=== PATIENT | female | born 1980 | race Caucasian/White ===

== ENCOUNTER 2018-11-14 02:14 | Inpatient (IN) | payer MEDICAID ==
[~2018-11-14] VITALS: Ht 160 cm; Wt 71.7 kg
[2018-11-14 02:31] VITALS: Ht 160 cm; Wt 71.7 kg
[2018-11-14 02:32] VITALS: BP 112/73; PULSE 85; RESP 17
[2018-11-14] MEDS ORDERED: CARBOPROST 250 MCG INJ IM PRN ×2 (03:00→06:00)
[2018-11-14] MEDS ORDERED: LIDOCAINE 1% (MPF) 30 ML INJ INJ PRN (03:00)
[2018-11-14] MEDS ORDERED: OXYTOCIN 30 UNITS/LR 500 ML IV SCH ×3 (03:00→05:47)
[2018-11-14] MEDS ORDERED: OXYTOCIN 30 UNITS/LR 500 ML IV PRN ×2 (03:00→06:00)
[2018-11-14] MEDS ORDERED: BUTORPHANOL 2 MG INJ IV PRN (03:00)
[2018-11-14] MEDS ORDERED: METHYLERGONOVINE 0.2 MG INJ IM PRN ×2 (03:00→06:00)
[2018-11-14] MEDS ORDERED: MISOPROSTOL 200 MCG TAB PR PRN ×2 (03:00→06:00)
[2018-11-14] MEDS: LACTATED RINGER'S 1,000 ML IV SCH ×2 (03:01→21:08)
--- NOTE | 2018-11-14 05:44 | HP ---
Date/Time of Note Date/Time of Note DATE: 11/14/18 TIME: 05:42 OB - History Hx of Present Free Text/Dictation Patient is a 37-year-old 4 para 1 at 39 weeks of gestation with estimated date of delivery 11/21/2018 Patient presents in active labor with regular contractions She reports positive movement; Denies any vaginal bleeding or leaking fluid GBS status is negative Estimated Due Date: Nov 21, 2018 : 4 Para: 1 Care: Good Care Past Family/Social History * Past Medical, Surgical, Family and Obstetric Histories reviewed from chart. OB Admission Exam Vital Signs Vital Signs Vital Signs Date Temp Pulse Resp B/P (MAP) Pulse Ox O2 O2 Flow FiO2 Time Delivery Rate 11/14/18 98.0 85 17 112/73 Room Air 02:32 (86) Physical Exam HEENT: WNL Heart: Rhythm Normal Lungs: Clear, Equal Abdomen: WNL Extremities: Normal Reflexes: Normal Cervical Dilatation: 5cm Effacement: 75% Station: -2 Membranes: Intact Heart Rate: 140's Accelerations: Accelerations Present Decelerations: No Decelerations Varibility: Marked Contractions on Admission: < 5 Minutes Apart Intensity: Moderate Last 72 hours Lab Results CBC & BMP 11/14/18 02:52 OB Assessment/Plan Reason for admission: active labor Plan: Expectant Management Other plan: Admit to labor and delivery Pain meds as needed Copies To: CC: MATT MCDANIEL MD ; HELENE FRANKEL MD Nov 14, 2018 05:44
--- NOTE | 2018-11-14 05:47 | LDN ---
Date/Time of Note Date/Time of Note DATE: 11/14/18 TIME: 05:45 Delivery Summary Weeks of Gestation Term gestation Placenta Delivered: Spontaneously Meconium: none Episiotomy: No Laceration repair: First-degree laceration repaired with 2-0 Vicryl Anesthesia type: Local Estimated blood loss: 200 Sponge & Needle done & correct: Yes All needle counts correct: Yes Any foreign bodies felt in the: No Delivery Information Sex Sex: male Apgars 1 Minute: 9 5 Minute: 9 Suctioning Nose & mouth suctioned at pratik: Yes Delee suction performed: No Umbilical Cord Umbilical cord with: 3 Vessels Cord presentations: no nuchal cord Cord Blood was obtained: Yes Mother & Baby Disposition Disposition Baby's weight 3130 g /6 pounds 14 ounces Mom & Baby to Maternity; Good: Yes Baby to NICU: No Copies To: CC: MATT MCDANIEL MD ; HELENE FRANKEL MD Nov 14, 2018 05:47
[2018-11-14] MEDS ORDERED: DIBUCAINE 1% 30 GM OINT TOP PRN (06:00)
[2018-11-14] MEDS ORDERED: BENZOCAINE 20% 56 ML SPRAY TOP PRN (06:00)
[2018-11-14] MEDS ORDERED: MAGNESIUM HYDROXIDE 30ML CUP PO PRN (06:00)
[2018-11-14] MEDS ORDERED: ACETAMINOPHEN 325 MG TAB PO PRN ×2 (06:00)
[2018-11-14] MEDS ORDERED: IBUPROFEN 600 MG TAB PO PRN (06:00)
[2018-11-14] MEDS ORDERED: WITCH HAZEL/GLYCERIN PAD PR PRN (06:00)
[2018-11-14] MEDS ORDERED: ONDANSETRON 4 MG INJ IV PRN (06:00)
[2018-11-14] MEDS ORDERED: LANOLIN HPA 1 PKT TOP PRN (06:00)
[2018-11-14 09:15] VITALS: BP 113/60; PULSE 85; RESP 19
[2018-11-14 15:59] VITALS: BP 115/62; PULSE 81; RESP 18
[2018-11-14 20:30] VITALS: BP 115/69; PULSE 89; RESP 18
[2018-11-14] MEDS: SENNA/DOCUSATE NA (8.6MG/50MG) TAB PO PRN (21:00)
[2018-11-14] MEDS: LACTATED RINGER'S 1,000 ML IV* SCH ×2 (21:08→21:47)
[2018-11-14] MEDS: IBUPROFEN 600 MG TAB PO PRN (23:44)
[2018-11-15] MEDS: LACTATED RINGER'S 1,000 ML IV SCH ×3 (02:49→18:49)
[2018-11-15 04:37] VITALS: BP 104/57; PULSE 65; RESP 18
[2018-11-15] MEDS: LACTATED RINGER'S 1,000 ML IV* SCH ×3 (05:47→21:47)
[2018-11-15] MEDS: IBUPROFEN 600 MG TAB PO PRN (06:29)
[2018-11-15 08:00] VITALS: BP 124/58; PULSE 76; RESP 19
--- NOTE | 2018-11-15 15:47 | DS ---
Date/Time of Note Date/Time of Note DATE: 11/15/18 TIME: 15:47 Obstetrical Discharge Record Final Diagnosis Final Diagnosis: Term delivered Vaginal Delivery Obstetrical Delivery: Spontaneous Condition on Discharge Physical Assessment Voiding: Yes Bowel Movement: Yes Breast: Soft, non-tender, Filling Fundus: Firm Calf Tenderness: No Patient Condition: Stable MATT MCDANIEL MD Nov 15, 2018 15:47
[2018-11-15 15:55] VITALS: BP 115/67; PULSE 83; RESP 18
[2018-11-15 21:15] VITALS: BP 119/83; PULSE 67; RESP 18
[2018-11-16 03:45] VITALS: BP 101/63; PULSE 76; RESP 18
[2018-11-16 07:30] VITALS: BP 112/64; PULSE 79; RESP 18
[2018-11-16] MEDS: SENNA/DOCUSATE NA (8.6MG/50MG) TAB PO PRN (09:23)
--- NOTE | 2018-11-17 13:58 | DELSUM ---
Delivery Summary A-C Datetime Report Generated by CPN: 11/17/2018 13:58 DELIVERY PERSONNEL Equipment Services Associate: Ricafrente Ayde MATERNAL INFORMATION Delivery Anesthesia: Local Medications in Delivery: LR 500 + 30 units pitocin Delivery QBL (ml): 200 Placenta Cultured: No Maternal Complications: None LABOR SUMMARY EDC: 11/21/2018 00:00 No. Babies in Womb: 1 Attempted: No Labor Anesthesia: None LABOR INFORMATION Reason for Induction: Not Applicable Onset of Labor: 11/14/2018 01:00 Complete Dilatation: 11/14/2018 04:59 Other Ripening Agents: N/A Oxytocin: N/A Group B Beta Strep: Negative Antibiotics # of Doses: 0 Steroids Given: None Reason Steroids Not Administered: Not Applicable MEMBRANES Membranes Rupture Method: Spontaneous Rupture of Membranes: 11/14/2018 04:30 Length of Rupture (hr): 0.60 Amniotic Fluid Color: Clear Amniotic Fluid Amount: Moderate Amniotic Fluid Odor: Normal STAGES OF LABOR Stage 1 hr: 3 Stage 1 min: 59 Stage 2 hr: 0 Stage 2 min: 7 Stage 3 hr: 0 Stage 3 min: 2 Total Time in Labor hr: 4 Total Time in Labor min: 8 VAGINAL DELIVERY Episiotomy: None Laceration Extension: First Degree Laceration Type: Perineal Laceration Repair: Yes Initial Vag Sponge Count: 10 Final Vag Sponge Count: 10 Initial Vag Sharps Count: 3 Final Vag Sharps Count: 3 Sponge Count Correct: Yes; Vaginal Sweep Performed Sharps Count Correct: Yes BABY A INFORMATION Delivery Date/Time: 11/14/2018 05:06 Method of Delivery: Vaginal Born in Route : No : N/A Forceps: N/A Vacuum Extraction: N/A Shoulder Dystocia : N/A SHOULDER DYSTOCIA BABY A Infant Delivery Date/Time: 11/14/2018 05:06 PRESENTATION/POSITION BABY A Presentation: Cephalic Cephalic Presentation: Vertex Vertex Position: Right Occipital Anterior Breech Presentation: N/A PLACENTA INFORMATION BABY A Placenta Delivery Time : 11/14/2018 05:08 Placenta Method of Delivery: Spontaneous Placenta Status: Delivered SCORES BABY A Heart Rate 1 min: >100 bpm Resp Effort 1 min: Good Cry Reflex Irritability 1 min: Cough/Sneeze/Pulls Away Muscle Tone 1 min: Active Motion Color 1 min: Body [place], Extremit Blue Resuscitation Effort 1 min: Tactile Stimulation SCORE 1 MIN: 9 Heart Rate 5 min: >100 bpm Resp Effort 5 min: Good Cry Reflex Irritability 5 min: Cough/Sneeze/Pulls Away Muscle Tone 5 min: Active Motion Color 5 min: Body [place], Extremit Blue Resuscitation Effort 5 min: Tactile Stimulation SCORE 5 MIN: 9 INFANT INFORMATION BABY A Gestational Age at Delivery: 39.0 Gestational Status: Full Term- 39- 40.6 Weeks Infant Outcome : Liveborn Infant Condition : Stable Infant Sex: Male IDENTIFICATION/MEDS BABY A ID Band Number: [id number] ID Band Location: Right Leg; Left Arm Sensor Applied: Yes Sensor Number: [id number] Sensor Location : Cord Clamp Vitamin K Given : Not Given Erythromycin Given: Not Given WEIGHT/LENGTH BABY A Infant Birthweight (gm): 3130 Weight (lb): 6 Weight (oz): 14 Infant Length (in): 18.50 Infant Length (cm): 46.99 CORD INFORMATION BABY A No. Cord Vessels: 3 Nuchal Cord : N/A Nuchal Cord- Other: 0 True Knot: 0 Cord Blood Taken: Yes Banking/Donate Info: No Infant Suction: Mouth; Nose ASSESSMENT BABY A Complications: None Physical Findings at Delivery: Within Normal Limits Respirations: Appears Normal Home Care Provider/ALS Called : No Care By: Greg Wu RN Transferred To: Remains with Mother
== END 2018-11-16 13:40 | disposition home or self-care (01) | DRG 807 ==
LOC: OBT 02:14 → L-D 02:16 → OBT 02:45 → L-D 02:45 → PP1 08:59
PROVIDERS: ADMIT Obstetrics & Gynecology; ATTEND Obstetrics & Gynecology
PROC: 10E0XZZ Delivery of Products of Conception, External Approach (ICD-10-PCS; principal; 2018-11-14)
PROC: 0HQ9XZZ Repair Perineum Skin, External Approach (ICD-10-PCS; 2018-11-14)
DX: O70.0 First degree perineal laceration during delivery (principal); Z37.0 Single live birth; Z3A.39 39 weeks gestation of pregnancy
CPT/HCPCS: 76815; 85025; 85610; 85730; 86592; 86850; 86900; 86901; 87340; G0463; J2590; J7120